=== PATIENT | male | born 1980 | race African-American/Black ===

== ENCOUNTER 2016-09-08 15:49 | Emergency (ER) | payer OTHER ==
[2016-09-08 16:13] VITALS: BP 120/84
[2016-09-08] MEDS ORDERED: Ondansetron INJ* 2 MG/ML VIAL IV ONE (17:04)
[2016-09-08] MEDS ORDERED: NS 0.9% 1000 ML* 2,000 ML IV ONE (17:04)
[2016-09-08] MEDS ORDERED: Pantoprazole IV* 40 MG IV ONE (17:04)
[2016-09-08] MEDS ORDERED: Ketorolac INJ* 30 MG/ML 1 ML VIAL IV ONE (17:04)
[2016-09-08 17:13] LABS: Hematocrit 44 % (42-52); Hemoglobin 14.9 g/dl (14.0-18.0); Mean Corpuscular HGB Conc 34 g/dl (31-36); Mean Corpuscular Hemoglobin 27 pg (27-31); Mean Corpuscular Volume 78 fL (80-94); Mean Platelet Volume 9 um3 (7.4-10.4); Red Blood Count 5.62 10^6/ul (4.0-5.4); Red Cell Distribution Width 15 % (10.5-15); White Blood Count 5.1 10^3/ul (3.5-10.8)
[2016-09-08 17:31] LABS: ALT 19 U/L (7-52); AST 33 U/L (13-39); Albumin 4.3 g/dL (3.2-5.2); Alkaline Phosphatase 36 U/L (34-104); Anion Gap 5 mmol/L (2-11); BUN/Creatinine Ratio 8.4 (8-20); Blood Urea Nitrogen 9 mg/dL (6-24); C Reactive Protein < 1.00 mg/L (< 5.00); CO2 Carbon Dioxide 27 mmol/L (22-32); Calcium 9.4 mg/dL (8.6-10.3); Chloride 105 mmol/L (101-111); Creatine Kinase 1139 U/L (10-223); EGFR African American 100.6 (>60); EGFR Non-African American 78.2 (>60); Globulin 2.9 g/dL (2-4); Glucose 101 mg/dL (70-100); Lipase 17 U/L (11.0-82.0); Magnesium 2.3 mg/dL (1.9-2.7); Potassium 3.3 mmol/L (3.5-5.0); Sodium 137 mmol/L (133-145); Total Protein 7.2 g/dL (6.4-8.9)
--- NOTE | 2016-09-08 17:35 | RAD ---
INDICATION: Chest pain COMPARISON: April 07, 2016 TECHNIQUE: An AP portable view obtained at 1710 hours is submitted. FINDINGS: Bones/Soft Tissues: There are no acute bony findings. Cardiomediastinal: The cardiomediastinal silhouette is normal. Lungs: There are no infiltrates. Pleura: There are no pleural effusions. Other: None IMPRESSION: NO ACTIVE DISEASE.
[2016-09-08] MEDS ORDERED: diPHENhydraMINE PO* 50 MG PO ONE (18:02)
[2016-09-08] MEDS ORDERED: Omeprazole CAP* 20 MG PO ONE (19:50)
--- NOTE | 2016-09-08 19:54 | ED ---
Unruly Vazquez Erika, scribed for Edenilson Curtis MD on 09/08/16 at 1735 . HPI Chest Pain - HPI Summary HPI Summary: Patient is a 35-year-old male presenting to the ED with a CC of chest pain. Patient reports he woke up this morning due to a mid-sternal chest pain radiating to the left anterior and left lateral chest. Patient also reports that his left arm felt tight, and notes associated diaphoresis and SOB. Patient also reports an intermittent tight sensation in his throat with difficulty swallowing. At 09:00 today, patient became lightheaded and had a syncopal episode. Patient took ibuprofen and Aleve at 14:00 to try to alleviate the pain , but chest pain is still currently rated a 9/10. After taking these medications , patient developed abdominal pain. Patient was brought to the ED by EMS, and was given ASA en route. Patient denies lower abdominal pain. Pt reports that he has had this sequence of symptoms in the past - most recently last week. He has seen a mechanical striper, and has had a stress test done, but does not have a diagnosis. Patient denies Hx HTN and diabetes, and denies illicit drug use, including cocaine. - History of Current Complaint Chief Complaint: EDChestPainROMI Hx Obtained From: Patient Onset/Duration: Started Hours Ago, Atraumatic, Still Present Timing: Constant Initial Severity: Moderate Current Severity: Moderate Pain Intensity: 9 Pain Scale Used: 0-10 Numeric Chest Pain Location: Mid Sternal, Left Anterior, Left Lateral Chest Pain Radiates: Yes Chest Pain Radiates To:: Arm - L Alleviating Factor(s): Nothing Associated Signs and Symptoms: Positive: Shortness of Breath, Syncope, Lightheadedness, Diaphoresis, Abdominal Pain - Additional Pertinent History Primary Care Physician: [id number] - Allergy/Home Medications Allergies/Adverse Reactions: Allergies Allergy/AdvReac Type Severity Reaction Status Date / Time Penicillins Allergy Hives Verified 03/07/16 10:17 PMH/Surg Hx/FS Hx/Imm Hx Endocrine/Hematology History: Denies: Hx Diabetes Cardiovascular History: Denies: Hx Hypertension Respiratory History: Reports: Hx Asthma Musculoskeletal History: Reports: Other Musculoskeletal History - fractured left leg /c surgery - Surgical History Surgery Procedure, Year, and Place: left leg Infectious Disease History: No Infectious Disease History: Denies: Traveled Outside the [place] in Last 30 Days - Family History Known Family History: Positive: Diabetes, Other - Cancer - Social History Alcohol Use: None Hx Substance Use: No Substance Use Type: Reports: None Hx Tobacco Use: No Smoking Status (MU): Never Smoked Tobacco Review of Systems Positive: Skin Diaphoresis ENT: Other - tight sensation in throat Positive: Chest Pain Positive: Shortness Of Breath Positive: Abdominal Pain Musculoskeletal: Other - L arm tightness Neurological: Other - lightheadedness Positive: Syncope All Other Systems Reviewed And Are Negative: Yes Physical Exam Triage Information Reviewed: Yes Vital Signs On Initial Exam: Initial Vitals Temp Pulse Resp BP Pulse Ox 98.6 F 70 20 118/83 98 09/08/16 15:55 09/08/16 15:55 09/08/16 15:55 09/08/16 15:55 09/08/16 15:55 Vital Signs Reviewed: Yes Appearance: Positive: Well-Appearing, No Pain Distress Skin: Positive: Warm, Skin Color Reflects Adequate Perfusion, Dry Head/Face: Positive: Normal Head/Face Inspection Eyes: Positive: EOMI, GILMAR ENT: Positive: Other - Speaks softly Neck: Positive: Supple, Nontender Respiratory/Lung Sounds: Positive: Clear to Auscultation, Breath Sounds Present Cardiovascular: Positive: RRR Abdomen Description: Positive: Soft, Other: - Tender epigastrum Bowel Sounds: Positive: Present Musculoskeletal: Positive: Normal, Strength/ROM Intact Neurological: Positive: Normal, Sensory/Motor Intact, Alert, Oriented to Person Place, Time Psychiatric: Positive: Affect/Mood Appropriate - Paras Coma Scale Coma Scale Total: 15 Diagnostics - Vital Signs Vital Signs Temp Pulse Resp BP Pulse Ox 09/08/16 16:25 26 09/08/16 16:21 99.0 F 09/08/16 16:00 68 25 120/84 99 09/08/16 15:57 70 17 118/83 98 09/08/16 15:56 71 20 100 09/08/16 15:55 98.6 F 70 20 118/83 98 - Laboratory Lab Results: Lab Results 09/08/16 09/08/16 09/08/16 Range/Units 17:00 17:00 17:00 WBC 5.1 (3.5-10.8) 10^3/ul RBC 5.62 H (4.0-5.4) 10^6/ul Hgb 14.9 (14.0-18.0) g/dl Hct 44 (42-52) % MCV 78 L (80-94) fL MCH 27 (27-31) pg MCHC 34 (31-36) g/dl RDW 15 (10.5-15) % Plt Count 200 (150-450) 10^3/ul MPV 9 (7.4-10.4) um3 Neut % (Auto) 47.3 (38-83) % Lymph % (Auto) 43.2 (25-47) % [place] % (Auto) 7.7 (1-9) % Eos % (Auto) 1.1 (0-6) % Baso % (Auto) 0.7 (0-2) % Absolute Neuts (auto) 2.4 (1.5-7.7) 10^3/ul Absolute Lymphs (auto) 2.2 (1.0-4.8) 10^3/ul Absolute Monos (auto) 0.4 (0-0.8) 10^3/ul Absolute Eos (auto) 0.1 (0-0.6) 10^3/ul Absolute Basos (auto) 0 (0-0.2) 10^3/ul Absolute Nucleated RBC 0.02 10^3/ul Nucleated RBC % 0.3 INR (Anticoag Therapy) 1.03 (0.89-1.11) APTT 37.5 H (26.0-36.3) seconds D-Dimer, Quantitative < 200 (Less Than 230) ng/mL Sodium 137 (133-145) mmol/L Potassium 3.3 L (3.5-5.0) mmol/L Chloride 105 (101-111) mmol/L Carbon Dioxide 27 (22-32) mmol/L Anion Gap 5 (2-11) mmol/L BUN 9 (6-24) mg/dL Creatinine 1.07 (0.67-1.17) mg/dL Est GFR ( Amer) 100.6 (>60) Est GFR (Non-Af Amer) 78.2 (>60) BUN/Creatinine Ratio 8.4 (8-20) Glucose 101 H (70-100) mg/dL Lactic Acid (0.5-2.0) mmol/L Calcium 9.4 (8.6-10.3) mg/dL Magnesium 2.3 (1.9-2.7) mg/dL Total Bilirubin 0.70 (0.2-1.0) mg/dL AST 33 (13-39) U/L ALT 19 (7-52) U/L Alkaline Phosphatase 36 (34-104) U/L Total Creatine Kinase 1139 H (10-223) U/L CK-MB (CK-2) 5.9 (0.6-6.3) ng/mL Troponin I 0.00 (<0.04) ng/mL C-Reactive Protein < 1.00 (< 5.00) mg/L Total Protein 7.2 (6.4-8.9) g/dL Albumin 4.3 (3.2-5.2) g/dL Globulin 2.9 (2-4) g/dL Albumin/Globulin Ratio 1.5 (1-3) Lipase 17 (11.0-82.0) U/L TSH 1.30 (0.34-5.60) mcIU/mL 09/08/16 Range/Units 17:00 WBC (3.5-10.8) 10^3/ul RBC (4.0-5.4) 10^6/ul Hgb (14.0-18.0) g/dl Hct (42-52) % MCV (80-94) fL MCH (27-31) pg MCHC (31-36) g/dl RDW (10.5-15) % Plt Count (150-450) 10^3/ul MPV (7.4-10.4) um3 Neut % (Auto) (38-83) % Lymph % (Auto) (25-47) % [place] % (Auto) (1-9) % Eos % (Auto) (0-6) % Baso % (Auto) (0-2) % Absolute Neuts (auto) (1.5-7.7) 10^3/ul Absolute Lymphs (auto) (1.0-4.8) 10^3/ul Absolute Monos (auto) (0-0.8) 10^3/ul Absolute Eos (auto) (0-0.6) 10^3/ul Absolute Basos (auto) (0-0.2) 10^3/ul Absolute Nucleated RBC 10^3/ul Nucleated RBC % INR (Anticoag Therapy) (0.89-1.11) APTT (26.0-36.3) seconds D-Dimer, Quantitative (Less Than 230) ng/mL Sodium (133-145) mmol/L Potassium (3.5-5.0) mmol/L Chloride (101-111) mmol/L Carbon Dioxide (22-32) mmol/L Anion Gap (2-11) mmol/L BUN (6-24) mg/dL Creatinine (0.67-1.17) mg/dL Est GFR ( Amer) (>60) Est GFR (Non-Af Amer) (>60) BUN/Creatinine Ratio (8-20) Glucose (70-100) mg/dL Lactic Acid 1.3 (0.5-2.0) mmol/L Calcium (8.6-10.3) mg/dL Magnesium (1.9-2.7) mg/dL Total Bilirubin (0.2-1.0) mg/dL AST (13-39) U/L ALT (7-52) U/L Alkaline Phosphatase (34-104) U/L Total Creatine Kinase (10-223) U/L CK-MB (CK-2) (0.6-6.3) ng/mL Troponin I (<0.04) ng/mL C-Reactive Protein (< 5.00) mg/L Total Protein (6.4-8.9) g/dL Albumin (3.2-5.2) g/dL Globulin (2-4) g/dL Albumin/Globulin Ratio (1-3) Lipase (11.0-82.0) U/L TSH (0.34-5.60) mcIU/mL Result Diagrams: 09/08/16 17:00 09/08/16 17:00 Lab Statement: Any lab studies that have been ordered have been reviewed, and results considered in the medical decision making process. - Radiology CXR Radiology Interpretation Completed By: Radiologist - IMPRESSION: NO ACTIVE DISEASE. - EKG 15:49 Cardiac Rate: NL - at 70 bpm EKG Rhythm: Sinus Rhythm Ectopy: None EKG Interpretation: Early repol Re-Evaluation - Re-Evaluation First Eval Re-Evaluation Time: 19:37 Change: Improved Comment: Discussed lab and imaging results with patient. Patient declined admission at this time Chest Pain Course/Dx - Course Assessment/Plan: IMPROVED IN ED. THE SYMPTOMS HAVE BEEN RECURRENT FOR 8-9 MONTHS. NORMAL CARDIAC STRESS TEST THIS PAST FALL. AT THIS TIME PATIENT DOES NOT HAVE A PMD. DISCUSSED ADMISSION. PATIENT PREFERS TO GO HOME, DECLINES ADMISSION. PATIENT WILL REQUEST A PMD FOR FURTHER WORK UP. DISCHARGE HOME STABLE. - Diagnoses Provider Diagnoses: Chest pain Discharge - Discharge Plan Condition: Stable Disposition: HOME Prescriptions: Omeprazole CAP* [Prilosec CAP* 20 MG] 20 mg PO BID #30 cap.dr Patient Education Materials: Chest Pain (ED) Referrals: Frank Shah MD [Primary Care Provider] - [facility] [place] [facility] [Outside] Additional Instructions: FOLLOW UP WITH YOUR DOCTOR. RETURN TO THE EMERGENCY DEPARTMENT FOR ANY WORSENING OF YOUR CONDITION OR QUESTIONS OR CONCERNS. The documentation as recorded by the Unruly yoder Erika accurately reflects the service I personally performed and the decisions made by me, Edenilson Curtis MD.
== END 2016-09-08 21:07 | disposition home or self-care (01) ==
LOC: ED 15:49
DX: R07.9 Chest pain, unspecified (principal); R06.02 Shortness of breath; R55 Syncope and collapse; R42 Dizziness and giddiness
CPT/HCPCS: 36415; 71010; 80053; 82550; 82553; 83605; 83690; 83735; 84443; 84484; 85025; 85379; 85610; 85730; 86140; 93005; 96374; 96375; 99282; A9270-GY; J1885; J2405

== ENCOUNTER 2016-09-21 10:44 | Inpatient (IN) | payer OTHER ==
[2016-09-21] MEDS ORDERED: NS 0.9% 1000 ML* 2,000 ML IV ONE (12:28)
[2016-09-21] MEDS ORDERED: Lidocaine 2% VISCOUS* 15 ML UDC PO ONE (12:28)
[2016-09-21] MEDS ORDERED: Ondansetron INJ* 2 MG/ML VIAL IV ONE (12:28)
[2016-09-21] MEDS ORDERED: Al Hydrox/Mg Hydrox/Simet LIQ* 30 ML UDC PO ONE (12:28)
--- NOTE | 2016-09-21 13:14 | RAD ---
HISTORY: Epigastric pain COMPARISONS: None TECHNIQUE: Multiple transverse and longitudinal ultrasound images were obtained of the right upper quadrant of the abdomen using grayscale and color Doppler imaging. FINDINGS: LIVER: The liver is normal in shape, size, contour, and echogenicity. There are no focal parenchymal masses. There is normal hepatopedal flow of the portal vein on Doppler imaging. BILIARY TREE: There is no intrahepatic or extrahepatic biliary dilatation. The common duct measures 0.4 cm. GALLBLADDER: The gallbladder is well-visualized. There is no cholelithiasis, gallbladder wall thickening, pericholecystic fluid, or sonographic Martinez sign. PANCREAS: The head of the pancreas is unremarkable. The tail of the pancreas is not well visualized secondary to overlying bowel gas. RIGHT KIDNEY: The right kidney is echogenic compared to the liver. There is no hydronephrosis or nephrolithiasis. The right kidney measures 10.5 x 4.3 x 5.5 cm. AORTA AND IVC: The aorta and IVC are unremarkable. FLUID: There are no pleural effusions. There is no free fluid within the hepatorenal recess. OTHER FINDINGS: None. IMPRESSION: ECHOGENIC RIGHT KIDNEY SUGGESTIVE OF MEDICAL RENAL DISEASE
[2016-09-21 13:21] LABS: Hematocrit 46 % (42-52); Hemoglobin 15.7 g/dl (14.0-18.0); Mean Corpuscular HGB Conc 34 g/dl (31-36); Mean Corpuscular Hemoglobin 27 pg (27-31); Mean Corpuscular Volume 79 fL (80-94); Mean Platelet Volume 9 um3 (7.4-10.4); Red Cell Distribution Width 15 % (10.5-15); White Blood Count 7.4 10^3/ul (3.5-10.8)
[2016-09-21 13:40] LABS: ALT 24 U/L (7-52); AST 35 U/L (13-39); Albumin 4.7 g/dL (3.2-5.2); Alkaline Phosphatase 41 U/L (34-104); Anion Gap 9 mmol/L (2-11); BUN/Creatinine Ratio 10.9 (8-20); Blood Urea Nitrogen 13 mg/dL (6-24); CO2 Carbon Dioxide 28 mmol/L (22-32); Calcium 9.9 mg/dL (8.6-10.3); Chloride 99 mmol/L (101-111); Creatine Kinase 1075 U/L (10-223); EGFR African American 88.5 (>60); EGFR Non-African American 68.8 (>60); Globulin 3.1 g/dL (2-4); Glucose 85 mg/dL (70-100); Lipase < 10 U/L (11.0-82.0); Magnesium 2.2 mg/dL (1.9-2.7); Potassium 3.8 mmol/L (3.5-5.0); Sodium 136 mmol/L (133-145); Total Protein 7.8 g/dL (6.4-8.9)
[2016-09-21] MEDS ORDERED: Iohexol 300* (CONTRAST) 10 ML SDV IV ONE (13:54)
[2016-09-21] MEDS ORDERED: Iohexol 350* (CONTRAST) 500 ML MDV IV ONE (13:57)
--- NOTE | 2016-09-21 14:45 | RAD ---
HISTORY: Chest and abdominal pain COMPARISONS: CT chest dated March 07, 2016 TECHNIQUE: Multiple contiguous axial CT scans were obtained of the chest, abdomen, and pelvis after the administration of intravenous contrast. Coronal and sagittal multiplanar reformations are submitted for review.. Oral contrast was administered. Delayed images were obtained through the abdomen FINDINGS: CHEST Evaluation is limited by patient breathing motion artifact. NECK AND THYROID: The lower neck and thyroid are unremarkable. CHEST WALL: There is no lower cervical, axillary, or supraclavicular lymphadenopathy by size criteria. HEART AND PERICARDIUM: The heart is unremarkable. AORTA AND PULMONARY VASCULATURE: The aorta and pulmonary vasculature are normal. Within the limitations of the study, there is no pulmonary arterial filling defect to suggest pulmonary embolism. MEDIASTINUM: There is no mediastinal lymphadenopathy by size criteria. MARGY: There is no hilar lymphadenopathy by size criteria. AIRWAY AND ESOPHAGUS: The airway is unremarkable, without endobronchial filling defect. The esophagus is grossly normal. LUNG PARENCHYMA: The lungs are clear. PLEURA: No pleural abnormalities are noted. BONES AND SOFT TISSUES: No bone or soft tissue abnormalities are noted. ABDOMEN/PELVIS: LIVER: The liver is normal in shape, size, contour, and attenuation. BILE DUCTS: There is no intrahepatic or extrahepatic biliary dilatation. GALLBLADDER: The gallbladder is normal, without pericholecystic inflammatory change. PANCREAS: The pancreas is normal, without mass or ductal dilatation. SPLEEN: Normal in size and appearance. UPPER GI TRACT: Evaluation of the gastrointestinal tract is limited by incomplete gastric distention. The upper GI tract is unremarkable. SMALL BOWEL \T\ MESENTERY: The small bowel is normal in contour, course, and caliber. There is no obstruction or dilatation. COLON: The colon is normal in contour, course, caliber. There is no pericolonic inflammatory change. Normal appendix this is best seen on axial images 64 through 70. There is large amount of stool within the colon. ADRENALS: Normal bilaterally. KIDNEYS: The kidneys are normal in shape, size, contour, and axis. There is no hydronephrosis or nephrolithiasis. BLADDER: The bladder is incompletely distended but is grossly normal. PELVIC ORGANS: The prostate gland is normal. The seminal vesicles are symmetric. AORTA: The aorta is normal. IVC: Unremarkable LYMPH NODES: There is no lymphadenopathy by size criteria. ABDOMINAL WALL: There is no evidence for abdominal wall hernia. BONES: Unremarkable OTHER: None IMPRESSION: NO PULMONARY ARTERIAL FILLING DEFECT TO SUGGEST PULMONARY EMBOLISM. NO ACUTE CT PATHOLOGY OF THE VISUALIZED CHEST, ABDOMEN, OR PELVIS.
[2016-09-21] MEDS ORDERED: Morphine INJ* 4 MG/ML 1 ML CARPUJECT IV ONE (15:20)
[2016-09-21 15:25] LABS: Urine Bilirubin Negative (Negative); Urine Glucose Negative (Negative); Urine Nitrite Negative (Negative)
[2016-09-21] MEDS ORDERED: Ondansetron INJ* 2 MG/ML VIAL IV PRN (15:45)
[2016-09-21] MEDS ORDERED: Aspirin Low Dose CHEW TAB* 81 MG PO ONE (15:50)
--- NOTE | 2016-09-21 15:58 | ED ---
Simon Vazquez Billy, scribed for Edenilson Curtis MD on 09/21/16 at 1225 . Complex/Multi-Sys Presentation - HPI Summary HPI Summary: Patient is a 36 year-old male coming to [facility] for evaluation of chest pain and shortness of breath since this morning. Patient reports chest tightness, severity 7/10. He states that he also has similar tightness in the neck and arms. Furthermore, he has numbness in the ears, and he states that his heart "feels different," and is unable to elaborate further. He also reports pain in the epigastrium and RUQ, as well as nausea, diaphoresis. Additionally, he had an episode of epistaxis this morning. Denies any changes in appetite, sinus or chest congestion, sore throat, or cough. Nothing makes his symptoms better or worse. He has had similar such episodes in the past year. - History Of Current Complaint Chief Complaint: EDShortnessOfBreath Time Seen by Provider: 09/21/16 12:16 Hx Obtained From: Patient Onset/Duration: Gradual Onset, Lasting Hours, Still Present Timing: Constant Severity Currently: Moderate Severity Initially: Moderate Aggravating Factor(s): none Alleviating Factor(s): none Associated Signs And Symptoms: Positive: SOB, Chest Pain, Palpitations, Nausea, Abdominal Pain, Diaphoresis, Other - numbness in the ears; epistaxis; - Allergies/Home Medications Allergies/Adverse Reactions: Allergies Allergy/AdvReac Type Severity Reaction Status Date / Time Penicillins Allergy Hives Verified 03/07/16 10:17 PMH/Surg Hx/FS Hx/Imm Hx Endocrine/Hematology History: Denies: Hx Diabetes Cardiovascular History: Denies: Hx Hypertension Respiratory History: Reports: Hx Asthma Musculoskeletal History: Reports: Other Musculoskeletal History - fractured left leg /c surgery - Surgical History Surgery Procedure, Year, and Place: left leg Infectious Disease History: No Infectious Disease History: Denies: Traveled Outside the [place] in Last 30 Days - Family History Known Family History: Positive: Diabetes, Other - Cancer - Social History Alcohol Use: None Hx Substance Use: No Substance Use Type: Reports: None Hx Tobacco Use: No Smoking Status (MU): Never Smoked Tobacco Review of Systems Positive: Skin Diaphoresis. Negative: Fever Positive: Epistaxis. Negative: Sore Throat, Ear Ache, Nasal Discharge Positive: Palpitations - "heart feels different", Chest Pain - chest tightness radiating to neck and arms Positive: Shortness Of Breath. Negative: Cough Positive: Abdominal Pain, Nausea Positive: Numbness - ears All Other Systems Reviewed And Are Negative: Yes Physical Exam Triage Information Reviewed: Yes Vital Signs On Initial Exam: Initial Vitals Temp Pulse Resp BP Pulse Ox 97.7 F 91 36 126/73 100 09/21/16 10:48 09/21/16 10:48 09/21/16 10:48 09/21/16 10:48 09/21/16 10:48 Vital Signs Reviewed: Yes Appearance: Positive: Well-Appearing, Pain Distress - mild Skin: Positive: Warm, Skin Color Reflects Adequate Perfusion, Diaphoretic Head/Face: Positive: Normal Head/Face Inspection Eyes: Positive: EOMI, GILMAR ENT: Positive: Normal ENT inspection Neck: Positive: Supple, Nontender Respiratory/Lung Sounds: Positive: Clear to Auscultation, Breath Sounds Present Cardiovascular: Positive: RRR Abdomen Description: Positive: Soft, Other: - tender in the epigastrium Musculoskeletal: Positive: Normal, Strength/ROM Intact Neurological: Positive: Normal, Sensory/Motor Intact, Alert, Oriented to Person Place, Time Psychiatric: Positive: Anxious - [place] Coma Scale Coma Scale Total: 15 Diagnostics - Vital Signs Vital Signs Temp Pulse Resp BP Pulse Ox 09/21/16 12:00 77 124/68 96 09/21/16 11:30 75 113/72 99 09/21/16 11:27 74 111/76 99 09/21/16 11:20 78 09/21/16 11:19 48 09/21/16 11:16 76 36 100 09/21/16 10:48 97.7 F 91 36 126/73 100 - Laboratory Lab Results: Lab Results 09/21/16 09/21/16 09/21/16 Range/Units 13:05 13:05 13:05 WBC 7.4 (3.5-10.8) 10^3/ul RBC 5.90 H (4.0-5.4) 10^6/ul Hgb 15.7 (14.0-18.0) g/dl Hct 46 (42-52) % MCV 79 L (80-94) fL MCH 27 (27-31) pg MCHC 34 (31-36) g/dl RDW 15 (10.5-15) % Plt Count 182 (150-450) 10^3/ul MPV 9 (7.4-10.4) um3 Neut % (Auto) 74.2 (38-83) % Lymph % (Auto) 17.2 L (25-47) % [place] % (Auto) 7.8 (1-9) % Eos % (Auto) 0.2 (0-6) % Baso % (Auto) 0.6 (0-2) % Absolute Neuts (auto) 5.5 (1.5-7.7) 10^3/ul Absolute Lymphs (auto) 1.3 (1.0-4.8) 10^3/ul Absolute Monos (auto) 0.6 (0-0.8) 10^3/ul Absolute Eos (auto) 0 (0-0.6) 10^3/ul Absolute Basos (auto) 0 (0-0.2) 10^3/ul Absolute Nucleated RBC 0.02 10^3/ul Nucleated RBC % 0.2 INR (Anticoag Therapy) 1.05 (0.89-1.11) APTT 38.6 H (26.0-36.3) seconds Sodium 136 (133-145) mmol/L Potassium 3.8 (3.5-5.0) mmol/L Chloride 99 L (101-111) mmol/L Carbon Dioxide 28 (22-32) mmol/L Anion Gap 9 (2-11) mmol/L BUN 13 (6-24) mg/dL Creatinine 1.19 H (0.67-1.17) mg/dL Est GFR ( Amer) 88.5 (>60) Est GFR (Non-Af Amer) 68.8 (>60) BUN/Creatinine Ratio 10.9 (8-20) Glucose 85 (70-100) mg/dL Lactic Acid (0.5-2.0) mmol/L Calcium 9.9 (8.6-10.3) mg/dL Magnesium 2.2 (1.9-2.7) mg/dL Total Bilirubin 0.60 (0.2-1.0) mg/dL AST 35 (13-39) U/L ALT 24 (7-52) U/L Alkaline Phosphatase 41 (34-104) U/L Total Creatine Kinase 1075 H (10-223) U/L CK-MB (CK-2) 5.7 (0.6-6.3) ng/mL Troponin I 0.00 (<0.04) ng/mL C-Reactive Protein 3.50 (< 5.00) mg/L Total Protein 7.8 (6.4-8.9) g/dL Albumin 4.7 (3.2-5.2) g/dL Globulin 3.1 (2-4) g/dL Albumin/Globulin Ratio 1.5 (1-3) Lipase < 10 L (11.0-82.0) U/L TSH 1.40 (0.34-5.60) mcIU/mL Urine Color Urine Appearance Urine pH (5-9) Ur Specific [place] (1.010-1.030) Urine Protein (Negative) Urine Ketones (Negative) Urine Blood (Negative) Urine Nitrate (Negative) Urine Bilirubin (Negative) Urine Urobilinogen (Negative) Ur Leukocyte Esterase (Negative) Urine Glucose (Negative) Urine Ascorbic Acid (Negative) 09/21/16 09/21/16 Range/Units 13:05 14:55 WBC (3.5-10.8) 10^3/ul RBC (4.0-5.4) 10^6/ul Hgb (14.0-18.0) g/dl Hct (42-52) % MCV (80-94) fL MCH (27-31) pg MCHC (31-36) g/dl RDW (10.5-15) % Plt Count (150-450) 10^3/ul MPV (7.4-10.4) um3 Neut % (Auto) (38-83) % Lymph % (Auto) (25-47) % [place]ove % (Auto) (1-9) % Eos % (Auto) (0-6) % Baso % (Auto) (0-2) % Absolute Neuts (auto) (1.5-7.7) 10^3/ul Absolute Lymphs (auto) (1.0-4.8) 10^3/ul Absolute Monos (auto) (0-0.8) 10^3/ul Absolute Eos (auto) (0-0.6) 10^3/ul Absolute Basos (auto) (0-0.2) 10^3/ul Absolute Nucleated RBC 10^3/ul Nucleated RBC % INR (Anticoag Therapy) (0.89-1.11) APTT (26.0-36.3) seconds Sodium (133-145) mmol/L Potassium (3.5-5.0) mmol/L Chloride (101-111) mmol/L Carbon Dioxide (22-32) mmol/L Anion Gap (2-11) mmol/L BUN (6-24) mg/dL Creatinine (0.67-1.17) mg/dL Est GFR ( Amer) (>60) Est GFR (Non-Af Amer) (>60) BUN/Creatinine Ratio (8-20) Glucose (70-100) mg/dL Lactic Acid 1.2 (0.5-2.0) mmol/L Calcium (8.6-10.3) mg/dL Magnesium (1.9-2.7) mg/dL Total Bilirubin (0.2-1.0) mg/dL AST (13-39) U/L ALT (7-52) U/L Alkaline Phosphatase (34-104) U/L Total Creatine Kinase (10-223) U/L CK-MB (CK-2) (0.6-6.3) ng/mL Troponin I (<0.04) ng/mL C-Reactive Protein (< 5.00) mg/L Total Protein (6.4-8.9) g/dL Albumin (3.2-5.2) g/dL Globulin (2-4) g/dL Albumin/Globulin Ratio (1-3) Lipase (11.0-82.0) U/L TSH (0.34-5.60) mcIU/mL Urine Color Yellow Urine Appearance Clear Urine pH 6.0 (5-9) Ur Specific [place] 1.010 (1.010-1.030) Urine Protein Negative (Negative) Urine Ketones Trace H (Negative) Urine Blood Negative (Negative) Urine Nitrate Negative (Negative) Urine Bilirubin Negative (Negative) Urine Urobilinogen Negative (Negative) Ur Leukocyte Esterase Negative (Negative) Urine Glucose Negative (Negative) Urine Ascorbic Acid * H (Negative) Result Diagrams: 09/21/16 13:05 09/21/16 13:05 Lab Statement: Any lab studies that have been ordered have been reviewed, and results considered in the medical decision making process. - CT CTA chest/abd/pel CT Interpretation Completed By: Radiologist - NO PULMONARY ARTERIAL FILLING DEFECT TO SUGGEST PULMONARY EMBOLISM. NO ACUTE CT PATHOLOGY OF THE VISUALIZED CHEST, ABDOMEN, OR PELVIS. - Ultrasound No standard instances Ultrasound Interpretation Completed By: Radiologist - GALLBLADDER ULTRASOUND: ECHOGENIC RIGHT KIDNEY SUGGESTIVE OF MEDICAL RENAL DISEASE - EKG 1103 EKG Interpretation: NSR 73 bpm, early repolarization, no ectopy Complex Multi-Symp Course/Dx Assessment/Plan: admit hospitalist stable. - Diagnoses Provider Diagnoses: Chest pain, Abdominal pain, Syncope Discharge - Discharge Plan Condition: Stable Disposition: ADMITTED TO [facility] Referrals: Frank Shah MD [Primary Care Provider] - The documentation as recorded by the Simon yoder Billy accurately reflects the service I personally performed and the decisions made by me, Edenilson Curtis MD.
--- NOTE | 2016-09-21 16:37 | RAD ---
Indication: Syncope. CT of the brain was performed without additional IV contrast. Patient had prior CT with contrast earlier the same day. Ventricular structures are midline. No midline shift is noted. There is hyperdensity in the intracranial vessels. This would make evaluation of subarachnoid hemorrhage difficult. No intracranial mass is noted. No obvious space occupying mass is noted. Mastoid air cells and paranasal sinuses are otherwise unremarkable. IMPRESSION: Hyperdensities in the sulci likely represents enhanced vessels as the patient has had recent contrast injection. Mastoid air cells and paranasal sinuses are unremarkable. Clinical correlation is suggested.
[2016-09-21 16:43] LABS: Benzodiazepine Urine Screen None Detected (None Detect)
[2016-09-21] MEDS ORDERED: PROCHLORPERAZINE INJ 5 MG/ML 2 ML VIAL IV PRN (19:36)
[2016-09-21] MEDS ORDERED: PROCHLORPERAZINE INJ 5 MG/ML 2 ML VIAL ONE (20:22)
[2016-09-21] MEDS: Albuterol HFA INHALER* 8 gm MDI INH PRN (20:26)
[2016-09-21] MEDS ORDERED: Albuterol 2.5 MG/3 ML NEB.SOL* (0.083%) ONE (20:36)
[2016-09-21] MEDS ORDERED: LORazepam INJ* 2 MG/ML 1 ML VIAL ONE (20:43)
[2016-09-21] MEDS: LORazepam INJ* 2 MG/ML 1 ML VIAL IV PUSH PRN (20:46)
--- NOTE | 2016-09-21 21:39 | RAD ---
Indication: Confusion. CT of the brain was performed without IV contrast. Comparison is made with the previous exam done earlier the same day. Ventricular structures are midline. No midline shift is noted. The extra-axial spaces are unremarkable. There is no evidence of adjacent mass or hemorrhage. No other high or low density lesions are identified. IMPRESSION: No intracranial mass or hemorrhage is noted.
[2016-09-21] MEDS: Omeprazole CAP* 20 MG PO SCH (22:51)
--- NOTE | 2016-09-21 23:28 | HP ---
HISTORY AND PHYSICAL: DATE OF ADMISSION: 09/21/16 PRIMARY CARE PROVIDER: None. ATTENDING PHYSICIAN WHILE IN THE HOSPITAL: Dr. Fiorella Pereira * (report dictated by Josh Snyder NP). CONSULTING RN MDS: Dr. Dupree. CHIEF COMPLAINT: 1. Chest pain. 2. Syncope. HISTORY OF PRESENT ILLNESS: Mr. Saucedo is a 36-year-old male patient who carries a history of asthma. He says that he has been having chest discomfort. It has been different the last couple of days. He describes it now as a tightness in the center of his chest going up into his jaw. He says he has had chest discomfort off and on for several months now with no real clear etiology. He says the pain before was a stabbing sharp pain that he was having. Now, the chest pain is a tightness in the center of his chest going into his jaw. He does note that when he goes upstairs he is feeling a little bit more short of breath, but it is not bringing on any chest discomfort. The patient states that he has also fainted twice today. I asked him if he was going to the bathroom or using the restroom, if he was feeling nauseous or trying to vomit. He denied this. He says he stood up and then he fainted. I asked him if he has fainted before. He says he has been fainting for the last year at least twice a month is what he replied to me. He states that he does take Aleve on a pretty regular basis. He denies having any abdominal pain or any fevers or chills. No recent cough or changes in medication. The patient states that he was concerned and decided to come into the ER today because of his new chest pain and he denies having any musculoskeletal related complaints with the chest pain. He was evaluated by Dr. Curtis. There was concern because of the chest discomfort and syncope, and the hospitalist service was asked to evaluate for admission. PAST MEDICAL HISTORY: Significant for asthma. PAST SURGICAL HISTORY: He has had a left knee arthroscopy. HOME MEDICATIONS: Include: 1. Omeprazole 20 mg p.o. b.i.d. 2. Albuterol 1 to 2 puffs every 6 hours as needed. ALLERGIES TO MEDICATIONS: Include PENICILLIN. FAMILY HISTORY: His mother had breast cancer and brain cancer. Father was diabetic. SOCIAL HISTORY: He does not smoke, does not drink. Denies recreational drug use. He is with children. Surrogate decision maker is his . REVIEW OF SYSTEMS: There is no documented fever. He denied having any significant weight change. There was no double vision. There is no ear discharge. He denied having any rhinorrhea. No sore throat. No thyroid enlargement. There was chest pain per my HPI. There is dyspnea on exertion. No orthopnea. No nocturnal dyspnea. There was no abdominal pain. There was no nausea. No vomiting. No dysuria. No frequency. There was loss of consciousness. No pruritus. No skin ulcerations. Review of 14 systems completed, all others negative. PHYSICAL EXAMINATION GENERAL: At this time, Mr. Saucedo is a 36-year-old male patient. He appears well nourished, well developed, and does not appear to be in any acute distress. VITAL SIGNS: Blood pressure 114/68 with a pulse of 82, respirations 20, O2 sat was 100% on room air, and temperature 97.7. HEENT: Head atraumatic and normocephalic. Eyes: EOMs intact. Sclerae anicteric and not pale. Throat: Oral mucosa appears to be moist. No oropharyngeal erythema. NECK: Supple. LUNGS: Clear to auscultation. No wheezes, rales, or rhonchi. HEART: Sounds S1, S2. Regular rate and rhythm. No murmurs, rubs, or gallops. ABDOMEN: Soft, flat, nontender. Bowel sounds present. EXTREMITIES: Pulses 2+ throughout. He is able to move all 4 extremities with 5 /5 strength. NEUROLOGIC: The patient is awake, alert, and oriented x3. No gross focal deficits. SKIN: Intact. LABORATORY DATA AND DIAGNOSTIC STUDIES: Today revealed a WBC of 7.4, RBC of 5.90, hemoglobin 15.7, hematocrit of 46, platelet count of 182. INR 1.05. PTT of 38.6. Sodium 136, potassium 3.8, chloride of 99, bicarb 28, BUN 13, creatinine 1.19, glucose 85, lactic 1.2, calcium 9.9, magnesium 2.0. Total bilirubin 0.6, AST 35, ALT 25, alk phos 41. CK was 1075 and it has been elevated like this in the past. His troponin was 0. TSH was normal. He had a chest, abdomen, and pelvis CTA. Impression: No acute pulmonary artery filling defect versus SBE. No acute CT pathology of the visualized chest , abdomen, or pelvis. He had a gallbladder ultrasound which revealed echogenic right kidney suggestive of medical renal disease. He had an EKG obtained today as well, which shows a normal sinus rhythm, rate of 73. No ST elevations or T-wave inversions. He did have J-point elevation. He had an echo with a normal EF 60% to 65% in February and he had a normal stress test done as well. Old medical records were reviewed. ASSESSMENT AND PLAN: Mr. Saucedo is a 36-year-old male patient coming into the ER today with complaints of chest pain and a syncopal episode on further evaluation. Hospitalist service was asked to evaluate and consult. He will be admitted under inpatient status for: 1. Chest pain: Etiology is unclear. The chest pain has changed now. He is having shortness of breath with exertion, particularly going upstairs. I do think that it will be warranted to repeat the stress test and cycle his troponins, get a lipid panel, check an A1c, and place him on as aspirin, place him on telemetry, and follow. 2. Syncope: Etiology is unclear. I did touch base with Dr. Dupree who will be evaluating the patient. He felt that a repeat echo would not be warranted because he just had one, but I do think that we should go ahead, get the stress test, telemetry. He may need a loop recorder. Get a Cardiology consult. Get orthostatic blood pressures. He does have an area of ecchymosis to the front of his head, so I do believe that he did faint twice today and we will get a brain CT as well. Continue to follow. 3. Asthma: We will continue the p.r.n. albuterol. 4. DVT prophylaxis: He will be placed on SCDs. 5. Code status: Full code. 6. Fluids, electrolytes, and nutrition: He can have a heart healthy diet and n.p.o. after midnight. TIME SPENT: Time spent on the admission was 60 minutes; greater than half the time was spent [id number] with the patient obtaining my history and physical, other half the time spent going over the plan of care with the patient and implementing the plan of care. I did discuss the plan of care with my attending , Dr. Pereira; she is in agreement. JOSH SNYDER NP CC: Dr. Dupree* [id number]/[facility] #: [id number] MTDD
--- NOTE | 2016-09-21 23:45 | CONS ---
CARDIOLOGY CONSULTATION: DATE OF CONSULT: 09/21/16 INDICATION FOR CONSULTATION: Syncope. HISTORY OF PRESENT ILLNESS: The patient is a 36-year-old gentleman with admission to the hospital because of chest pain and syncope. The patient states he woke up this morning, he had chest pain. It was a sharp pain in the center of his chest. It radiated to his jaws. He got up to walk to the kitchen and had a syncopal episode. He sustained trauma to the front of his head. He has some ecchymosis there. The patient states he occasionally has episodes of chest pain. This was a particularly intense episode of chest pain. The patient denied any nausea or vomiting. He denies any significant change in his exercise tolerance. The patient states he woke up on the floor and decided to come to the emergency room. The patient one other episode of chest pain earlier this week. The patient had another episode of syncope earlier this month. The patient was admitted to the hospital last February with chest pain. At that time, he had an echocardiogram and exercise nuclear stress that were unremarkable. PAST MEDICAL HISTORY: Unremarkable. PAST SURGICAL HISTORY: None. CURRENT MEDICATIONS: None. ALLERGIES: PENICILLIN. FAMILY HISTORY: Mother of breast cancer. Father is alive in his 70s. SOCIAL HISTORY: He denies tobacco, alcohol, or recreational drugs. He has 2 children. PHYSICAL EXAMINATION: Height is 6 feet 1 inch, weight is 192 pounds, blood pressure 113/64, heart rate is 82, temperature 98.1, respiratory rate is 16. Sclerae anicteric. Oropharynx is pink without erythema. Carotids are 2+ without bruits. JVD is normal. Thyroid is normal. Cardiac Exam: S1, S2 without any murmurs, rubs, or gallops. Lungs are clear to auscultation. Extremities show no edema. The patient is awake, alert, and oriented. He moves all 4 extremities equally. DIAGNOSTIC STUDIES/LAB DATA: An EKG today demonstrates normal sinus rhythm with possible left ventricular hypertrophy. No ischemic EKG changes from previous EKGs. The patient did have a gallbladder ultrasound, a CTA of the chest and CTA of the head in the emergency room all of which were unremarkable. IMPRESSION: A 36-year-old gentleman without significant past medical history who was admitted to the hospital with chest pain and a syncopal episode. His EKG is unremarkable. His telemetry in the emergency room is unremarkable. The patient did have an exercise nuclear stress test and an echocardiogram in February of 2016. For now, my recommendation is to observe the patient overnight. The patient will be scheduled for a stress echocardiogram tomorrow morning to see if it invokes any arrhythmias or any evidence of ischemia. The patient would likely benefit from a long winder tender cardiac monitoring as an outpatient. CC: Valentin Snyder NP* [id number]/[facility] #: [id number] MTDD
[2016-09-22 05:51] LABS: Hematocrit 42 % (42-52); Hemoglobin 14.2 g/dl (14.0-18.0); Mean Corpuscular HGB Conc 34 g/dl (31-36); Mean Corpuscular Hemoglobin 27 pg (27-31); Mean Corpuscular Volume 79 fL (80-94); Mean Platelet Volume 9 um3 (7.4-10.4); Red Blood Count 5.29 10^6/ul (4.0-5.4); Red Cell Distribution Width 15 % (10.5-15); White Blood Count 4.6 10^3/ul (3.5-10.8)
[2016-09-22 06:10] LABS: Potassium 3.8 mmol/L (3.5-5.0)
[2016-09-22 06:11] LABS: BUN/Creatinine Ratio 11.3 (8-20); EGFR African American 77.8 (>60); EGFR Non-African American 60.5 (>60); HDL Cholesterol 39.5 mg/dL
[2016-09-22] MEDS ORDERED: NS 0.9% 1000 ML* 1,000 ML IV ONE (07:18)
[2016-09-22] MEDS ORDERED: Aspirin EC Low Dose* 81 MG TAB.EC PO SCH (09:00)
[2016-09-22] MEDS: Omeprazole CAP* 20 MG PO SCH ×2 (09:17→21:29)
[2016-09-22 13:08] LABS: BUN/Creatinine Ratio 10.9 (8-20); EGFR African American 96.9 (>60); EGFR Non-African American 75.3 (>60); Potassium 3.9 mmol/L (3.5-5.0)
--- NOTE | 2016-09-22 14:01 | PN ---
Subjective Date of Service: 09/22/16 Interval History: Overnight events noted. This morning patient is alert but slightly lethargic and slow to respond. Does not remember events from last night aside from subjective SOB prior to episode. Says overall he is feeling better, chest pain is still present but improved. Family History: Unchanged from Admission Social History: Unchanged from Admission Past Medical History: Unchanged from Admission Objective Active Medications: Acetaminophen (Tylenol Tab*) 650 mg PO Q4H PRN Albuterol (Ventolin Hfa Inhaler*) 2 puff INH Q6H PRN Sodium Chloride (Ns 0.9% 1000 Ml*) 1,000 mls @ 150 mls/hr IV .PER RATE ONE Lorazepam (Ativan Inj*) 1 mg IV PUSH Q6H PRN Omeprazole (Prilosec Cap*) 20 mg PO BID SUZAN Ondansetron HCl (Zofran Inj*) 4 mg IV Q6H PRN Prochlorperazine Edisylate (Compazine Inj*) 5 mg IV Q6H PRN Vital Signs 09/21/16 09/21/16 09/21/16 15:44 16:08 17:03 Temperature 98.1 F Pulse Rate 94 85 82 Respiratory 16 Rate Blood Pressure 113/64 (mmHg) O2 Sat by Pulse 99 98 100 Oximetry 09/21/16 09/22/16 09/22/16 23:34 03:28 03:29 Temperature 97.4 F 98.1 F Pulse Rate 70 68 104 Respiratory 20 20 20 Rate Blood Pressure 106/64 105/61 103/58 (mmHg) O2 Sat by Pulse 100 97 100 Oximetry 09/22/16 09/22/16 09/22/16 07:55 08:02 11:47 Temperature 100.0 F 98.7 F 98.4 F Pulse Rate 71 68 Respiratory 16 16 Rate Blood Pressure 114/75 118/65 (mmHg) O2 Sat by Pulse 96 98 Oximetry Oxygen Devices in Use Now: None Appearance: Young, AAM, laying in bed in NAD Eyes: No Scleral Icterus Ears/Nose/Mouth/Throat: Mucous Membranes Moist Neck: NL Appearance and Movements; NL JVP Respiratory: Symmetrical Chest Expansion and Respiratory Effort, Clear to Auscultation Cardiovascular: NL Sounds; No Murmurs; No JVD, RRR Abdominal: NL Sounds; No Tenderness; No Distention Lymphatic: No Cervical Adenopathy Extremities: No Edema Skin: No Rash or Ulcers Neurological: Alert and Oriented x 3, - - no focal deficits Result Diagrams: 09/22/16 04:50 09/22/16 12:41 Additional Lab and Data: Microbiology and Other Data: Microbiology 09/21/16 20:55 Influenza Types A,B Antigen (ELMO) - Final Nasal Specimen received for Influenza A/B Molecular testing Assess/Plan/Problems-Billing Assessment: Chest pain and syncopal episodes in a 36 yo M with hx of asthma - Patient Problems (1) Chest pain Current Visit: Yes Comment: Appreciate Cardiology assistance. Troponins have remained negative. No events on tele. Stress echo is ordered and pending (2) Syncope Current Visit: Yes Comment: Possible seizure overnight. EEG done and pending read. Neurology to consult. No abnormalities on head CT. May benefit from intermodal customer service outpatient cardiac monitoring if no etiology determined. (3) Asthma Current Visit: Yes Comment: Albuterol prn (4) CURTIS (acute kidney injury) Current Visit: Yes Comment: Possibly due to constrast. Improved with IVF (5) DVT prophylaxis Current Visit: Yes Comment: SCDs
[2016-09-22] MEDS: Albuterol HFA INHALER* 8 gm MDI INH PRN (19:41)
[2016-09-22] MEDS: LORazepam INJ* 2 MG/ML 1 ML VIAL IV PUSH PRN (19:55)
--- NOTE | 2016-09-22 23:07 | CONS ---
NEUROLOGY CONSULTATION: DATE OF CONSULT: 09/22/16 LOCATION: The patient is an inpatient. ORDERING PROVIDER: Valentin Snyder NP REASON FOR CONSULT: Question of seizure. HISTORY OF PRESENT ILLNESS: Jeet Saucedo is a 36-year-old man with a history of asthma as well as episodes of chest pain of unclear etiology who presented to the emergency department for evaluation of chest pain, which was radiating up into his neck yesterday. In obtaining the history of these episodes, it also became evident that he had been having fainting spells for approximately the past year and had fainted on the day of admission striking his forehead and left knee. He apparently also had somewhat of an unresponsive episode once he was here on the floor last night and Dr. Montoya and Valentin Snyder NP, who were evaluating him questioned whether he could be having seizures. An EEG was obtained this morning and neurology consult was requested. The patient tells me that he has been having episodes of fainting approximately twice a month for about the past year. 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 Since then he has been having episodes of chest pain, which is in the center of his chest that can radiate to the right or left. He also feels his throat tightening when this occurs and says he also wheezes. He typically gets up to go to the kitchen to get something to drink and it is at that point that he will pass out. He is unaware of any abnormal body movements when he has passed out, but no witnesses were available at the time of my evaluation with the patient. He denies having urinary incontinence or oral trauma with any of these episodes. His mother has a history of seizures and he has witnessed these, which he says involved her losing consciousness and having whole body shaking. He has never heard that his episodes of loss of consciousness involve anything similar to what happens to her. PAST MEDICAL HISTORY: 1. Asthma. 2. Left knee injury, status post surgery several years ago. HOME MEDICATIONS: 1. Omeprazole 20 mg twice daily. 2. Albuterol 1 to 2 puffs every 6 hours as needed. ALLERGIES: PENICILLIN causes hives and throat tightness. FAMILY HISTORY: His mother reportedly had breast cancer and brain cancer in addition to seizures. Father was diabetic. SOCIAL HISTORY: He does not smoke or drink alcohol. He denies recreational drug use. He is and has children. REVIEW OF SYSTEMS: He denies any recent systemic illness or fevers. Since he has been here in the hospital, he has vomited on several occasions. PHYSICAL EXAM: Vital Signs: Temperature 98.4, blood pressure 118/65, heart rate 68, and oxygen saturation 98% on room air. General exam: The patient is in no acute distress, lying on his left side. He has a somewhat restricted affect. Heart: In a regular rate and rhythm. Lungs: Revealed mild wheezes bilaterally. Extremities: He has a goose egg over his left forehead and also bruise over his left knee. Neurologic examination: He is fully awake, alert, and oriented. Speech is fluent without dysarthria or aphasia. Pupils are equal, round, and reactive from 3 to 2 mm bilaterally. Versions are full without nystagmus. Visual huang are full to confrontation. Facial sensation and musculature are full and symmetric. Hearing is intact to finger rub. Palate elevate symmetrically and the tongue is midline. Shoulder shrug is full and symmetric. On motor examination, he has normal bulk and tone in the upper and lower extremities. He indicates that his left leg is weaker since he had a bad knee injury in basket ball when he was 15 years old and had some major surgery. As a result, he has relatively poor effort with that leg overall, but there is no obvious focal weakness and strength is normal in the remainder of the extremities. On sensory testing, he also endorses that sensation is different to light touch in the calf, both laterally and medially in the left leg, which has been present since his knee injury and surgery, but sensation is normal in the feet bilaterally and normal in the upper extremities. [id number]-it-fuji is intact without ataxia. Reflexes are 2+ throughout the upper and lower extremities with downgoing toes. He was not ambulated at this time. DIAGNOSTIC STUDIES/LAB DATA: Laboratory data reviewed includes a CBC, which was largely unremarkable and BNP, which was notable for a creatinine of 1.33 this morning, but when rechecked was 1.1. His troponins had been negative. Urinalysis was negative aside from trace ketones. His urine tox screen was negative and flu A and B were negative. A noncontrast brain CT was personally reviewed and was essentially normal aside from some contrast evident in the intracranial vessels due to a contrast study that was done earlier in the day. EEG was reviewed and was normal awaking and sleep recordings. IMPRESSION: This is a 36-year-old man with episodes of syncope associated with chest pain and always occurring when he is standing and walking. Given the close association with his pain episodes as well as the positional component, these episodes did not sound consistent with seizures. His EEG was normal and his brain CT was also essentially normal aside from the fact that there was contrast evident due to an earlier contrast study that was done. I had a very low suspicion that he is having seizures and I do not think any other neurologic workup is warranted at this time. He maybe having vasovagal syncope related to pain, which he rates as a 10/10. Thank you for this consultation. [id number]/[facility] #: [id number] NESTOR
--- NOTE | 2016-09-23 05:12 | EEG ---
ELECTROENCEPHALOGRAPHY: DATE OF RECORDIN09/22/16 - ROOM #453 LOCATION: The patient is an inpatient. ORDERING PROVIDER: Valentin Snyder NP CLINICAL PROBLEM: This is a 36-year-old male with a history of asthma who has been having chest discomfort and presented to the emergency department because of this as well as pain going into his jaw. He also reported fainting twice on the day of admission and that he has been fainting for the past year at least twice a month. EEG is requested to evaluate for epileptiform abnormalities. MEDICATIONS: 1. Compazine. 2. Zofran. 3. Ativan. 4. Ventolin. 5. Tylenol. 6. Prilosec. REPORT: The waking background showed appropriate organization with clearly- defined [id number]-[id number] voltage and frequency gradients. There was a well -defined posterior dominant rhythm of 10 Hz, which was symmetrical and showed normal reactivity. Anteriorly, there was an expected pattern of lower voltage, irregular, mixed faster frequencies. Photic stimulation and hyperventilation were not performed. Attenuation of the occipital rhythm accompanied drowsiness. The sleep background was appropriately organized with well-developed sleep spindles and vertex waves. The sleep transient showed appropriate morphology and were bilaterally synchronous and symmetrical. Throughout the recording, there were no epileptiform discharges, focal features , paroxysmal features, or significant interhemispheric asymmetries. CLINICAL IMPRESSION: This is a normal waking and sleep EEG. There are no epileptiform abnormalities. [id number]/[facility] #: [id number] MTDD
[2016-09-23] MEDS: Acetaminophen TAB* 325 MG PO PRN ×2 (06:14→20:02)
--- NOTE | 2016-09-23 11:49 | PN ---
Subjective Date of Service: 09/23/16 Interval History: Patient seen this morning after stress echo. Patient states he had difficulties with the procedure due to his chest pain. He felt SOB and light-headed as the speed was increasing and thought he was going to pass out. He states that he lowered his head and closed his eyes to try to breathe easier and focus on staying up to speed. Spoke with Dr. Trevino who reports the patient seemed to be less responsive during this episode. Also had SOB and some abnormal inspiratory breath sounds. Once patient placed onto table and SpO2 taken he was in 90s. present today, states that he has had more frequent episodes of syncope recently, a few times a week. Usually he does not move, occasionally will have some mild shaking. She states he always seems to have some heavy and abnormal breathing or seeming like he has stopped breathing for a time. Family History: Unchanged from Admission Social History: Unchanged from Admission Past Medical History: Unchanged from Admission Objective Active Medications: Acetaminophen (Tylenol Tab*) 650 mg PO Q4H PRN Albuterol (Ventolin Hfa Inhaler*) 2 puff INH Q6H PRN Lorazepam (Ativan Inj*) 1 mg IV PUSH Q6H PRN Omeprazole (Prilosec Cap*) 20 mg PO BID SUZAN Ondansetron HCl (Zofran Inj*) 4 mg IV Q6H PRN Prochlorperazine Edisylate (Compazine Inj*) 5 mg IV Q6H PRN Vital Signs 09/22/16 09/22/16 09/22/16 15:23 19:52 19:55 Temperature 98.6 F Pulse Rate 66 75 Respiratory 24 48 48 Rate Blood Pressure 122/68 122/67 (mmHg) O2 Sat by Pulse 99 100 Oximetry 09/22/16 09/22/16 09/22/16 20:00 20:55 23:26 Temperature 97.4 F Pulse Rate 62 Respiratory 22 20 20 Rate Blood Pressure 113/71 (mmHg) O2 Sat by Pulse 98 Oximetry 09/23/16 03:12 Temperature 97.7 F Pulse Rate 64 Respiratory 20 Rate Blood Pressure 112/71 (mmHg) O2 Sat by Pulse 100 Oximetry Oxygen Devices in Use Now: None Appearance: Young, AAM, laying in bed in NAD Eyes: No Scleral Icterus Ears/Nose/Mouth/Throat: Mucous Membranes Moist Neck: NL Appearance and Movements; NL JVP Respiratory: Symmetrical Chest Expansion and Respiratory Effort, - - No wheezing appreciated, somewhat diminished throughout although good air movement with effort. Chest is TTP Cardiovascular: NL Sounds; No Murmurs; No JVD, RRR Abdominal: NL Sounds; No Tenderness; No Distention Lymphatic: No Cervical Adenopathy Extremities: No Edema Skin: No Rash or Ulcers Neurological: Alert and Oriented x 3 Result Diagrams: 09/22/16 04:50 09/22/16 12:41 Additional Lab and Data: Microbiology and Other Data: Microbiology 09/21/16 20:55 Influenza Types A,B Antigen (ELMO) - Final Nasal Specimen received for Influenza A/B Molecular testing Assess/Plan/Problems-Billing Assessment: Chest pain and syncopal episodes in a 36 yo M with hx of asthma - Patient Problems (1) Chest pain Current Visit: Yes Comment: Appreciate Cardiology assistance. Troponins have remained negative. No events on tele. Stress echo was unremarkable although patient did not reach target HR due to chest pain. Patient had significant SOB with stress echo some abnormal inspiratory breath sound. ?inhlation injury from previous exposure. Have asked Dr. Ch to evaluate the patient. Will plan for spirometry and bronch in AM (2) Syncope Current Visit: Yes Comment: Appreciate Neurology assistance, EEG negative, do not feel this is seizures. ?vasovagal from chest pain. Will benefit from terminal operator outpatient cardiac monitoring. (3) Asthma Current Visit: Yes Comment: Continue Albuterol prn. Spirometry ordered (4) DVT prophylaxis Current Visit: Yes Comment: SCDs
[2016-09-23] MEDS: Omeprazole CAP* 20 MG PO SCH ×2 (11:59→20:25)
[2016-09-23] MEDS: Albuterol HFA INHALER* 8 gm MDI INH PRN (13:55)
[2016-09-23] MEDS ORDERED: Ibuprofen TAB* 600 MG PO PRN (16:05)
[2016-09-23] MEDS ORDERED: Morphine INJ* 2 MG/ML 1 ML CARPUJECT IV ONE (20:10)
--- NOTE | 2016-09-23 22:34 | CONS ---
PULMONARY CONSULTATION REPORT: DATE OF CONSULT: 09/22/16 CONSULTATION REQUESTED BY: Will Byrne MD REASON FOR CONSULT: Evaluation of shortness of breath and episode of hypoxemia. HISTORY OF PRESENT ILLNESS: The patient is a 36-year-old man with a history of asthma with episodes of intermittent chest pain of unclear etiology. The patient presented to the emergency room for evaluation of chest pain, which was radiating up into the neck from the middle of the chest. The patient also reports episodes of fainting spells for the past year. The patient reported he recently fainted at work and was taken to the hospital. The patient also reported another episode of passing out at home. The patient apparently had an unresponsive episode after admission yesterday. The patient reports at least 2 episodes of fainting spells over the past year. 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 He felt like the fumes were overwhelming, got sick and needed to be brought to the hospital and that was the first time he started having those fainting episodes. The patient also has been having episodes of chest pain, starting in the center of the chest, radiate up to the right or left side. He also feels like his throat is tightening and also that he wheezes on occasions. The patient was seen and examined at bedside earlier by me today. The patient reported that he just had an orange and started having throat tightening. The patient denies GERD symptoms. The patient did not appear in any kind of respiratory distress when he was complaining of his throat closing off. The patient also mentions to me that he is concerned about possible malignancy, given history of malignancy in his family. The patient also reports that he feels lymph nodes in his neck area and also in the back of his head and is concerned whether they could be cancerous. The patient also reported that he felt like he was going to pass out during his lung exam, and he was trying to take deep breaths; however, did not appear to be in any kind of respiratory distress at that point. The patient also reports that he has passing out spells when he gets to his kitchen to get something to drink. The patient also reports difficulty swallowing. The patient never had any urinary incontinence or trauma with any of these passing out spells. The patient reports history of seizures in his mother which he says he has witnessed and felt like she would lose consciousness and her whole body shakes. The patient had a stress echo this morning. He had chest pain during that time. He felt short of breath, lightheaded as speed was increasing and thought he was going to pass out. He lowered his head and closed his eyes to try to breathe easier and was found to be less responsive during that episode. He also apparently had some abnormal inspiratory breath sounds. Once he was placed back onto the table, his O2 sats were in 90s. The patient had EEG performed today, which was negative for seizure activity. He was evaluated by Neurology. His CT of the brain was also within normal limits. The patient reports history of allergy to PENICILLIN, which was given to him for lump in his neck, reports throat closing off with PENICILLIN. PAST MEDICAL HISTORY: 1. Asthma. 2. Left knee injury, status post surgery several years ago. MEDICATIONS: At home: 1. Omeprazole 20 mg twice a day. 2. Albuterol 1 to 2 puffs q.6 hours as needed. ALLERGIES: PENICILLIN causes hives and throat tightness. FAMILY HISTORY: Breast cancer, brain cancer and seizure in mother. Father is diabetic. SOCIAL HISTORY: Does not smoke or drink alcohol. No recreational drug abuse. He is and lives at home with his . REVIEW OF SYSTEMS: All 14 systems reviewed and as per HPI. PHYSICAL EXAM: General: The patient in bed, in no apparent distress. Vital Signs: Temperature 97.5, heart rate 78 beats per minute, respiratory rate 16 per minute, O2 saturation 100% on room air, blood pressure 125/68. HEENT: Pupils equal and reactive to light. Mucous membranes moist. Lymphatics: No palpable cervical or supraclavicular adenopathy. Respiratory: Good air entry bilaterally. No wheezing noted on auscultation, no stridor noted. No accessory or respiratory muscle usage. Cardiovascular: S1 and S2 present. Regular. Abdomen: Soft, nontender, nondistended. Bowel sounds present. Extremities: Normal range of motion. No edema. Skin: No rashes or ulcers. Neurologic: Alert, awake, oriented x3. No focal deficits. DIAGNOSTIC STUDIES/LAB DATA: WBC count 4.6, hemoglobin 14.2, hematocrit 42, platelet count 163, sodium 138, potassium 3.9, chloride 105, bicarb 25, BUN 12, creatinine 1.10, calcium 9.0, troponins within normal limits. Influenza A and B negative. CTA of chest was personally reviewed by me. No evidence of pulmonary embolism. No parenchymal opacities noted. No evidence of tracheomalacia or abnormalities in the airway noted. IMPRESSION AND RECOMMENDATIONS: 36-year-old male with a history of asthma with nonspecific symptoms recently over the past year with episodes of syncope, chest tightness, shortness of breath of unclear etiology. Possibility of seizure was ruled out. I also have concern for conversion disorder. Given history of exposure to bleaching agents in the past and with the onset of symptoms, concern for airway abnormality. Also symptoms concerning for gastroesophageal reflux disease for which he is already on medications. He would benefit from upper endoscopy. Will schedule the patient for bronchoscopy tomorrow for airway inspection and rule out tracheobronchomalacia. Procedure was discussed in detail with the patient. Associated risks and benefits were thoroughly explained. The patient is agreeable to the procedure. Further recommendations pending bronchoscopy. Rest of management as per primary team. [id number] #: [id number] MTDD
[2016-09-24] MEDS ORDERED: NS 0.9% 1000 ML* 1,000 ML IV ONE (05:00)
[2016-09-24] MEDS ORDERED: Famotidine IV* 10 MG/ML 2 ML (20 mg) IV SLOW PU ONE (09:03)
[2016-09-24] MEDS: Omeprazole CAP* 20 MG PO SCH ×2 (09:12→20:31)
--- NOTE | 2016-09-24 10:20 | PN ---
Subjective Date of Service: 09/24/16 Interval History: Patient seen this morning after PFTs. Says he feels about the same, still with chest discomfort. Reports that he had dizziness when ambulating yesterday and BPs were low. Continues with flat affect. States that he has seen a psychiatrist around the time his grandmother and he tried to hurt himself ( did not specify how) and was on remeron and zoloft for some time, not currently. Feels that his mood has been "good", denies feeling anxious. Family History: Unchanged from Admission Social History: Unchanged from Admission Past Medical History: Unchanged from Admission Objective Active Medications: Acetaminophen (Tylenol Tab*) 650 mg PO Q4H PRN Albuterol (Ventolin Hfa Inhaler*) 2 puff INH Q6H PRN Lactated Ringer's (Lactated Ringers 1000 Ml Bag*) 1,000 mls @ 125 mls/hr IV PER RATE SUZAN Ibuprofen (Motrin Tab*) 600 mg PO Q6H PRN Lorazepam (Ativan Inj*) 1 mg IV PUSH Q6H PRN Omeprazole (Prilosec Cap*) 20 mg PO BID SUZAN Ondansetron HCl (Zofran Inj*) 4 mg IV Q6H PRN Prochlorperazine Edisylate (Compazine Inj*) 5 mg IV Q6H PRN Vital Signs 09/23/16 09/23/16 09/23/16 12:04 16:19 19:57 Temperature 97.9 F 99.1 F 97.6 F Pulse Rate 71 79 72 Respiratory 16 16 16 Rate Blood Pressure 125/68 98/56 91/62 (mmHg) O2 Sat by Pulse 100 99 Oximetry 09/24/16 09/24/16 09/24/16 02:33 03:13 04:30 Temperature 97.7 F Pulse Rate 72 59 Respiratory 16 20 Rate Blood Pressure 88/48 92/46 (mmHg) O2 Sat by Pulse 98 Oximetry 09/24/16 07:30 Temperature 98.1 F Pulse Rate 60 Respiratory 16 Rate Blood Pressure 123/74 (mmHg) O2 Sat by Pulse 100 Oximetry Oxygen Devices in Use Now: None Appearance: Young, AAM, sitting in bed in NAD Eyes: No Scleral Icterus Ears/Nose/Mouth/Throat: Mucous Membranes Moist Neck: NL Appearance and Movements; NL JVP Respiratory: - - CTA B/L, poor effort Cardiovascular: NL Sounds; No Murmurs; No JVD, RRR, - - Chest TTP Abdominal: NL Sounds; No Tenderness; No Distention Lymphatic: No Cervical Adenopathy Extremities: No Edema Skin: No Rash or Ulcers Neurological: Alert and Oriented x 3, - - flat affect Result Diagrams: 09/22/16 04:50 09/22/16 12:41 Additional Lab and Data: Assess/Plan/Problems-Billing Assessment: Chest pain and syncopal episodes in a 36 yo M with hx of asthma - Patient Problems (1) Chest pain Current Visit: Yes Comment: Appreciate Cardiology assistance. Troponins have remained negative. No events on tele. Stress echo was unremarkable although patient did not reach target HR due to chest pain. Appreciate Pulm assistance, plan for bronch today, PFTs done but due to poor effort, unclear how accurate they are. Will ask GI to evaluate for ?esophagitis, continue PPI. Will also ask for Psych evaluation ?somatization (2) Syncope Current Visit: Yes Comment: Appreciate Neurology assistance, EEG negative, do not feel this is seizures. ?vasovagal from chest pain. Will benefit from intermission coordinator outpatient cardiac monitoring. Had some hypotension last night while ambulating. Will continue to monitor. Recheck orthostatics in room. (3) Asthma Current Visit: Yes Comment: Continue Albuterol prn. Spirometry ordered (4) DVT prophylaxis Current Visit: Yes Comment: SCDs
[2016-09-24] MEDS ORDERED: Midazolam* 1 MG/ML 5 ML VIAL (5 MG) ONE (12:36)
[2016-09-24] MEDS ORDERED: fentaNYL* 50 MCG/ML 2 ML VIAL (100 MCG VIAL) ONE (12:36)
--- NOTE | 2016-09-24 12:47 | PN ---
Progress Note - Progress Note Note: Pulm consult f/u note 09/24/16. Pt seen and examined at bedside. Reports had bad night, couldnot sleep well due to cough. Active Medications Generic Name Dose Route Start Last Admin Trade Name Freq PRN Reason Stop Dose Admin Acetaminophen 650 mg 09/21/16 15:45 09/23/16 20:02 Tylenol Tab* PO 650 mg Q4H PRN Administration FEVER/PAIN Albuterol 2 puff 09/21/16 15:48 09/23/16 13:55 Ventolin Hfa Inhaler* INH 2 puff Q6H PRN Administration COUGH Lactated Ringer's 1,000 mls @ 125 mls/hr 09/24/16 10:00 Lactated Ringers 1000 Ml Bag* IV PER RATE SUZAN Ibuprofen 600 mg 09/23/16 16:05 09/24/16 10:57 Motrin Tab* PO 600 mg Q6H PRN Administration PAIN Lorazepam 1 mg 09/21/16 20:42 09/22/16 19:55 Ativan Inj* IV PUSH 1 mg Q6H PRN Administration SEIZURES Omeprazole 20 mg 09/21/16 21:00 09/24/16 09:12 Prilosec Cap* PO 20 mg BID SUZAN Administration Ondansetron HCl 4 mg 09/21/16 15:45 09/21/16 17:44 Zofran Inj* IV 4 mg Q6H PRN Administration NAUSEA Prochlorperazine Edisylate 5 mg 09/21/16 19:36 09/21/16 20:33 Compazine Inj* IV 5 mg Q6H PRN Administration NAUSEA/VOMITING Vital Signs Temp Pulse Resp BP Pulse Ox 98.1 F 60 16 123/74 100 09/24/16 07:30 09/24/16 07:30 09/24/16 08:00 09/24/16 07:30 09/24/16 07:30 Gen: Pt in NAD HEENT: No Scleral Icterus, Mucous Membranes Moist Neck: NL Appearance and Movements; NL JVP Respiratory: CTA B/L, poor effort Cardiovascular: NL Sounds; No Murmurs; No JVD, RRR Abdominal: NL Sounds; No Tenderness; No Distention Lymphatic: No Cervical Adenopathy Extremities: No Edema Skin: No Rash or Ulcers Neurological: Alert and Oriented x 3 Laboratory Results - last 24 hr 09/23/16 09/24/16 09/24/16 21:15 00:10 03:10 Troponin I 0.00 0.00 0.00 Assessment: Pt is 36 y o m with h/o asthma a/w chest pain and syncopal episodes, non- diagnostic stress test. Pt scheduled for bronchoscopy for airway inspection to r/o stricture or tracheomalacia Procedure was discussed in detail Associated risks and benefits were discussed in detail Pt agreeable to procedure Further recommendations pending bronchoscopy c/w albuterol Spirometry was technically limited, didnot show obstruction or fixed defect
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
[2016-09-24] MEDS ORDERED: DiMENhydriNATE IV* 50 MG/ML VIAL IV PUSH PRN (13:40)
[2016-09-24] MEDS ORDERED: Acetaminophen TAB* 325 MG PO PRN (13:40)
[2016-09-24] MEDS: DULoxetine DR CAP* 30 MG CAP.DR PO SCH (17:05)
--- NOTE | 2016-09-24 23:24 | CONS ---
CONSULTATION REPORT: DATE OF CONSULT: 09/24/16 REASON FOR CONSULTATION: Chest pain. NARRATIVE: This is a 36-year-old gentleman with a history of asthma who presents with refractory ch est pain. He states that he has had pain like this for months, but it has gotten progressively wors e. It radiates up into the neck. It does seem to be somewhat pleuritic as it is worsened with deep breath or palpating over the abdomen. It is not worse with meals, eating and he has had no dysphag ia, nausea or vomiting. He has had an extensive evaluation including laboratory data, CAT scan, and cardiac evaluation, which was unremarkable. He did have a bronchoscopy recently, which showed no g ross abnormality either. We are asked to consult to consider an upper endoscopy to rule an esophage al cause for his pain. PAST MEDICAL HISTORY: Includes asthma. He also has a left knee injury. MEDICATIONS: His at-home medicines were: 1. Omeprazole 2. Albuterol. FAMILY HISTORY: Negative for GI disease. REVIEW OF SYSTEMS: He denies any weight loss, GI bleeding, bowel irregularities or lower abdominal pain. He denies any dysphagia or heartburn. PHYSICAL EXAM: He is an -[place] gentleman describing pain, but is looking relatively comfo rtable. Blood pressure is 103/63, heart rate is 62 and regular. He is anicteric. Lungs are clear a nteriorly. There is some chest wall tenderness. Cardiac exam reveals a regular rhythm without murmu r. Abdomen is soft without tenderness or organomegaly. LABORATORY DATA: Date include a hemoglobin of 14.2. Normal liver panel. IMPRESSION: A 36-year-old gentleman with chest pain. He has had a negative cardiac and pulmonary e valuation. His symptoms would be rather atypical for esophageal disease given the absence of a conn ection between eating, the pleuritic nature of his pain, but given the unremarkable workup thus far, it would be prudent to consider an upper endoscopy to rule out occult gastroesophageal reflux disea se, eosinophilic esophagitis. This was discussed with the patient. We will make arrangements for t hat to be done tomorrow. [id number]/[facility] #: [id number]
--- NOTE | 2016-09-25 02:10 | PRO ---
PULMONARY FUNCTION TEST REPORT: DATE OF PROCEDURE: 09/22/16 PROCEDURE PERFORMED: Spirometry. CLINICAL INFORMATION: 36-year-old male with asthma and shortness of breath. REFERRING MD: Dr. Will Byrne. COMMENTS: Pulmonary function testing equipment was quality controlled. The patient was able to follow instructions well. Test did not fulfill criteria for acceptability due to the patient's inability to perform prolonged exhalation. INTERPRETATION: The patient's forced vital capacity is 3.82 L or 78% predicted. FEV1 is 2.92 L or 73% predicted. FEV1/FVC is 93% predicted. IMPRESSION: Spirometry not suggestive of obstructive ventilatory defect from review of flow volume loop. Technically limited study. No evidence of fixed airway obstruction noted. [id number]/CPS #: [id number] MTDD
--- NOTE | 2016-09-25 02:27 | PRO ---
BRONCHOSCOPY REPORT: DATE OF PROCEDURE: 10/21/16 PROCEDURE PERFORMED: Bronchoscopy for airway inspection. PROCEDURAL DIAGNOSIS: Shortness of breath, rule out tracheomalacia or strictures. ANESTHESIA: General anesthesia. ANESTHESIOLOGIST: Dr. Aguilar, refer to anesthesiologist's note for further details. DESCRIPTION OF PROCEDURE: Informed consent was obtained from the patient prior to the procedure after all the risks and benefits were thoroughly explained. The patient with history of bleach and chemical exposure with episodes of shortness of breath, dizziness, and syncope. The patient also with chest pains. Bronchoscopy was scheduled to rule out airway strictures and tracheomalacia. The patient was placed supine on operating room table. The patient was intubated under GlideScope visualization. Upper airway inspection revealed no abnormalities. Vocal cords were moving normally with inspiration. Patient was intubated without any difficulty. Olympus bronchoscope was then inserted through ET tube and the trachea was inspected. No tracheal stenosis or lesions noted. No secretions were noted. All airways were patent. No evidence of inflammation or granulation tissue noted. The patient tolerated the procedure well. Bronchoscope was then withdrawn. The patient was extubated and seen in recovery in optimal condition. [id number]/CPS #: [id number] MTDD
[2016-09-25] MEDS ORDERED: fentaNYL* 50 MCG/ML 2 ML VIAL (100 MCG VIAL) ONE ×2 (08:47→09:12)
[2016-09-25] MEDS ORDERED: Midazolam* 1 MG/ML 10 ML VIAL (10 MG) ONE ×2 (08:47→08:48)
[2016-09-25] MEDS: DULoxetine DR CAP* 30 MG CAP.DR PO SCH (10:13)
[2016-09-25] MEDS: Omeprazole CAP* 20 MG PO SCH (10:14)
--- NOTE | 2016-09-25 11:30 | PRO ---
PROCEDURE NOTE: DATE OF PROCEDURE: 09/25/16 PROCEDURE: Gastroscopy. MEDICINES USED: Versed 6 mg IV and fentanyl 25 mcg IV. NARRATIVE: This is a 36-year-old gentleman, who was admitted to the hospital for chest pain. The pain is persistent. It is somewhat pleuritic and reproducible with chest palpation. He has had an evaluation, which is included CAT scan, cardiac evaluation, and a bronchoscopy, which has been unremarkable. Gastroscopy was recommended to rule out the possibility of an esophageal source for his pain. DESCRIPTION OF PROCEDURE: After the procedure was discussed with the patient, risks and benefits were outlined, written consent was obtained; the patient was placed in the left lateral decubitus position; and conscious sedation was administered. A video diagnostic gastroscope was inserted orally and passed very carefully into the esophagus. The esophagus, stomach, and duodenum to the second to third portion were well visualized. The patient tolerated the procedure well and there were no immediate complications. FINDINGS: The esophagus was easily intubated and the esophageal mucosa was entirely normal. There was no evidence of erosion, exudate, stricture, or any inflammatory change. The stomach was entered. Upon retroflexion, I did not appreciate a hiatal hernia. The gastric mucosa was normal without any ulceration or inflammatory change. The pylorus was normal and patent. The duodenal bulb was normal and the second to third portion of the duodenum was normal with a normal folding pattern. CONCLUSION: Normal upper endoscopy without any esophageal abnormality to explain the patient's chest pain. RECOMMENDATION: His pain would be very atypical for digestive process. He is already on acid suppressive therapy. I do not believe he requires any further GI workup. CC: Dr. Shah * [id number]/[facility] #: [id number] [facility]
[2016-09-25 11:34] VITALS: BP 103/50
--- NOTE | 2016-09-25 11:55 | DCNOTE ---
Patient seen this morning. Symptoms mostly unchanged. EGD done this AM was negative. Discussed findings with patient and plans for further work-up as an outpatient to which he is agreeable. On exam, continued TTP in chest, lungs CTA B/L, no LE edema, flat affect Will plan to discharge patient home. Extensive work-up has showed no clear cause for patient's symptoms. He has close PCP follow-up in 2 days. Will also make referral for cardiology appointment for implantable recorder.
--- NOTE | 2016-09-25 23:27 | DS ---
CC: Dr. Shah DISCHARGE SUMMARY: DATE OF ADMISSION: 09/21/16 DATE OF DISCHARGE: 09/25/16 PRIMARY CARE PHYSICIAN: Dr. Shah. PRINCIPAL DISCHARGE DIAGNOSES: 1. Chest pain. 2. Syncope. SECONDARY DIAGNOSIS: Possible underlying asthma. TESTING DONE DURING THE HOSPITALIZATION: Gallbladder ultrasound, impression: Echogenic right kidney suggestive of medical renal disease. CTA chest, abdomen and pelvis with contrast, impression: No pulmonary arterial filling defect to silveira ggest pulmonary embolism. No acute CT pathology of the visualized chest, abdomen, or pelvis. CT of the brain without contrast, impression: No intracranial mass or hemorrhage is noted. Bronchoscopy: No tracheal stenosis or lesions noted. No secretions were noted. All airways were pa tent, no evidence of inflammation or granulation tissue noted. Appropriate pictures were taken of silveira bsegmental bronchi and trachea. Endoscopy: Normal upper endoscopy without any esophageal abnormality to explain the patient's chest pain. CONSULTATIONS DURING HOSPITALIZATION: 1. Dr. Ceferino Dupree, Cardiology. 2. Dr. Marylin Pierre, Neurology. 3. Dr. Concepción Ch, Pulmonology. 4. Dr. Elliott Leblanc, Psychiatry. 5. Dr. Fadi Degroot, Gastroenterology. DISCHARGE MEDICATION REGIMEN: 1. Tylenol 650 mg by mouth every 4 hours as needed for pain. 2. Duloxetine 60 mg by mouth daily. 3. Ibuprofen 600 mg by mouth every 6 hours as needed for pain. 4. Albuterol 1 to 2 puffs inhaled every 6 hours as needed for shortness of breath or wheezing. 5. Omeprazole 20 mg by mouth 2 times daily. HPI AND HOSPITAL SUMMARY: Please see the full history and physical by Valentin Snyder NP, for full d etails. Briefly, Mr. Saucedo is a 36-year-old man with a past medical history of asthma, who present ed to the hospital with about 6 to 8 months of progressive episodes of chest pain that radiates into the jaw associated with throat tightness, shortness of breath, and syncopal episodes. These have b een ongoing since the patient was exposed to some cleaning chemicals and was hospitalized at that ti sd. He states the workup was largely negative; however, this was when he was diagnosed with asthma. Since then, the episodes have been progressively more frequent, now happening multiple times a wee k. The patient was hospitalized here in February 2016 with somewhat similar symptoms. He had a cardi ac stress test at the time that was negative. During this admission, the patient was seen by multip le specialists as noted in the consultation list above. Of the studies done that were completely be nign include an EGD and a bronchoscopy. The patient underwent a stress echo; however, he was unable to get to the target heart rate. Also, for his PFTs which were done here in the hospital, he was u nable to get to target expiratory time. While hospitalized, the patient seemed to have one episode of syncope, which happened in one of the first nights, no abnormalities were noted on telemetry at t he time. After this episode, a Neuro consult was prompted. The patient underwent an EEG that was n egative. Dr. Pierre did not feel that his symptoms were consistent with seizures. There was some co ncern that this could possibly be somatization. The patient was evaluated by Psychiatry and Dr. Arron garcia said that this is a possibility; however, he did not feel completely confident at the diagnosis a t the time. He recommended an SNRI be started as the patient did give some symptoms of OCD and has a history of suicidality and depression, so Cymbalta was started. It is noted that the patient had an elevated CK on admission to the hospital at 1075. This seems to have been ongoing since it was i nitially checked in February of 2016. By the time of discharge, the CK had nearly normalized. The hiren yap did not complain of any diffuse muscle pains, just chest pain which was present throughout the hospitalization and was reproducible. After an extensive workup here in the hospital, etiology of the patient's symptoms is still unclear at this time. It is recommended that he be referred to Cardiology for placement of an implantable r ecorder to evaluate if he has any arrhythmias noted during his syncopal episodes, although nothing a bnormal was noted on telemetry during his 5-day stay here in the hospital. The patient will follow up with his PCP in 2 days after discharge where further workup can be undertaken. TIME SPENT: Total time spent on this discharge 45 minutes. This is a summary of the hospitalization. Please see the full medical record for further details. [id number]/[facility] #: [id number]
== END 2016-09-25 13:00 | disposition home or self-care (01) | DRG 203 ==
LOC: ED 10:44 → MEDTELE 15:42 → OBSVTOIN 09-22 14:22
PROVIDERS: ADMIT Hospitalist; ATTEND Hospitalist
PROC: 4A09X1Z Measurement of Respiratory Capacity, External Approach (ICD-10-PCS; 2016-09-22)
PROC: 0BJ08ZZ Inspection of Tracheobronchial Tree, Via Natural or Artificial Opening Endoscopic (ICD-10-PCS; 2016-09-24)
PROC: 0DJ08ZZ Inspection of Upper Intestinal Tract, Via Natural or Artificial Opening Endoscopic (ICD-10-PCS; principal; 2016-09-25)
DX: R07.9 Chest pain, unspecified (principal); N17.9 Acute kidney failure, unspecified; R55 Syncope and collapse; J45.909 Unspecified asthma, uncomplicated; Z79.899 Other long term (current) drug therapy; Z88.0 Allergy status to penicillin; Z80.3 Family history of malignant neoplasm of breast; Z80.8 Family history of malignant neoplasm of other organs or systems; Z83.3 Family history of diabetes mellitus; T50.8X1A Poisoning by diagnostic agents, accidental (unintentional), initial encounter; N14.4 Toxic nephropathy, not elsewhere classified; Y92.239 Unspecified place in hospital as the place of occurrence of the external cause; F42.9 Obsessive-compulsive disorder, unspecified; F45.9 Somatoform disorder, unspecified; K21.9 Gastro-esophageal reflux disease without esophagitis
CPT/HCPCS: 36415; 70450; 71275; 74177; 76705; 80048; 80053; 80061; 80307; 81003; 82550; 82553; 83036; 83605; 83690; 83735; 84443; 84484; 85025; 85610; 85730; 86140; 87502; 93005; 93350; 94640; 94760; 95816; A9270-GY; G0378; J0780; J2060; J2250; J2270; J2405; J3010; Q9967

== ENCOUNTER 2017-04-27 17:28 | Emergency (ER) | payer SELFPAY ==
[2017-04-27 17:43] VITALS: BP 103/62
--- NOTE | 2017-04-27 18:53 | RAD ---
INDICATION: Right elbow injury COMPARISON: None TECHNIQUE: AP, lateral, and oblique views were obtained. FINDINGS: The bony structures, joint spaces, and soft tissues are normal for age. There is no radiopaque foreign body IMPRESSION: NEGATIVE EXAMINATION.
--- NOTE | 2017-04-27 18:53 | RAD ---
INDICATION: Right knee injury COMPARISON: None TECHNIQUE: AP and lateral views were obtained. FINDINGS: There are no acute bony findings. There is fragmentation of the tibial tubercle representing a chronic finding. There is minor patellofemoral spurring and there is minor spurring tibial spines. There is no significant joint effusion. IMPRESSION: NO ACUTE BONY FINDINGS.
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
== END 2017-04-27 19:22 | disposition home or self-care (01) ==
LOC: ED 17:28
DX: S50.01XA Contusion of right elbow, initial encounter (principal); W22.8XXA Striking against or struck by other objects, initial encounter; Y93.9 Activity, unspecified; Y92.9 Unspecified place or not applicable; M25.562 Pain in left knee; Z11.4 Encounter for screening for human immunodeficiency virus [HIV]; I20.9 Angina pectoris, unspecified; J45.909 Unspecified asthma, uncomplicated; Z88.0 Allergy status to penicillin
CPT/HCPCS: 36415; 86703; 99282